=== PATIENT | male | born 1940 | race Two or more races ===

== ENCOUNTER 2024-08-13 06:46 | Emergency (ER) | payer OTHER ==
[~2024-08-13] VITALS: Ht 167.6 cm; Wt 96.2 kg
[2024-08-13] MEDS ORDERED: DONEPEZIL HCL OD5 MG (06:57)
[2024-08-13] MEDS ORDERED: ZESTRIL2.5 MG (06:57)
[2024-08-13] MEDS ORDERED: LEVOTHYROXINE25 MCG (06:57)
[2024-08-13] MEDS ORDERED: TAMS0.4C (06:57)
[2024-08-13] MEDS ORDERED: 0.9 % SODIUM CHLORIDE 1,000 ML IV ONE (07:30)
[2024-08-13 08:08] LABS: HEMATOCRIT 36.3 % (39.0-48.0); HEMOGLOBIN 12.2 g/dL (13-16.00); MEAN CORPUSCULAR HEMOGLOBIN 33.8 pg (27.00-32.0); MEAN CORPUSCULAR HGB CONC 33.8 g/dl (32.0-36.0); PLATELET COUNT 158 K/uL (150-450); RED BLOOD COUNT 3.63 M/uL (4.00-6.00); RED CELL DISTRIBUTION WIDTH 13.2 % (11.5-14.5)
[2024-08-13 08:31] LABS: INR 1.09; PARTIAL THROMBOPLASTIN TIME 25.9 SECONDS (22.0-34.0); PROTHROMBIN TIME 11.8 SECONDS (9.0-11.5)
[2024-08-13 09:26] LABS: ALBUMIN 3.4 gm/dL (3.4-5.0); BILIRUBIN TOTAL 0.41 mg/dL (0.3-1.2); CREATININE SERUM 1.47 mg/dL (0.70-1.30); GFR 45.98; GLOBULINA 4.2 G/DL (2.4-3.5); POTASSIUM 4.45 mEq/L (3.5-5.1); TOTAL PROTEIN 7.6 gm/dL (6.4-8.2)
[2024-08-13 09:30] LABS: URINE APPEARANCE Clear; URINE BILIRRUBIN Negative (NEGATIVE); URINE BLOOD Large; URINE COLOR Yellow; URINE GLUCOSE Negative (NEGATIVE); URINE KETONE Negative (NEGATIVE); URINE LEUKOCYTE Negative; URINE NITRATE Negative; URINE PROTEIN 30 (NEGATIVE); URINE UROBILINOGEN 0.2 E.U./dl
[2024-08-13 09:41] LABS: URINE BACTERIA 8.8 uL (0.0-1933); URINE EPITHELIAL CELLS 2.9 uL (0.0-38.8); URINE WBC 3.2 uL (0.0-23.2)
[2024-08-13 09:59] LABS: URINE CAST 1.06 uL (0.0-1.40); URINE RBC 1.9 uL (0.0-20.8)
== END 2024-08-13 12:18 | disposition home or self-care (01) ==
LOC: ER 06:46
PROVIDERS: General Practice
DX: G30.9 Alzheimer's disease, unspecified (principal); F02.80 Dementia in other diseases classified elsewhere, unspecified severity, without behavioral disturbance, psychotic disturbance, mood disturbance, and anxiety; R53.1 Weakness; I10 Essential (primary) hypertension; E03.8 Other specified hypothyroidism
CPT/HCPCS: 36415; 70450; 71045; 93005; 96365; 96366; 99284; J7030